=== PATIENT | female | born 1965 | race Caucasian/White ===

== ENCOUNTER 2019-05-01 00:56 | Day surgery (SDC) | payer OTHER, SELFPAY ==
[2019-04-19 16:13] VITALS: BMI 27.2
[2019-05-01] VITALS (7 sets, daily range): BP systolic 94–142; BP diastolic 59–88; PULSE 64–76; RESP 14; TEMP 36.7; O2SAT 99; BMI 27.6
--- NOTE | 2019-05-01 01:23 | PM.IMHP ---
H&P: HPI History of Present Illness Chief complaint: Thickened Endometrium Narrative: La Vaughan is a 53 year old postmenopausal female who presents for a scheduled hysteroscopy and dilation and curettage. The patient was initially seen in the [facility] office as a referral for thickened endometrium noted on pelvic ultrasound. Patient had a pelvic ultrasound performed in January 2019 as part of monitoring for hormone replacement therapy by an outside provider. Patient started bioidentical hormone replacement in January of 2018 and has been doing well with treatment. Ultrasound showed uterus measuring 9.3 x 5.8 x 4.5 cm with endometrial stripe measuring 5 mm. An in-office endometrial biopsy attempt was made by outside provider, however unsuccessful due to cervical stenosis. Patient reports severe discomfort and pain during attempted procedure. Patient is otherwise asymptomatic. She denies any unusual vaginal bleeding or discharge. She is status post endometrial ablation approximately 15 years ago at which time menses ceased and went through menopause at age 50. Last Pap smear in December of 2018 and was normal, per patient. Review of Systems Review of Systems: All systems reviewed & are unremarkable except as noted in HPI and below Constitutional: Constitutional: Reports as per HPI, Reports no additional constitutional complaints, Denies chills, Denies fever(s), Denies headache(s) and Denies night sweats Eyes: Eyes: Reports as per HPI and Reports no additional eye complaints ENT: Reports system reviewed and no additional complaints, except as documented, Reports as per HPI, Reports Normal hearing present and Denies headache(s) Cardiovascular: Cardiovascular: Reports as per HPI, Reports no additional cardiovascular complaints, Denies chest pain and Denies dyspnea Respiratory: Respiratory: Reports as per HPI, Reports no additional respiratory complaints, Denies cough and Denies dyspnea Gastrointestinal: Gastrointestinal: Reports as per HPI, Reports no additional gastrointestinal complaints, Denies abdominal pain, Denies change in bowel habits, Denies change in stool character, Denies nausea and Denies vomiting Genitourinary: Genitourinary: Reports no additional female genitourinary complaints, Reports as per HPI, Denies abnormal vaginal bleeding, Denies genital lesions, Denies hot flashes, Reports dyspareunia (occasional), Denies pelvic pain, Denies sexual dysfunction, Denies urinary incontinence, Denies vaginal discharge, Denies vaginal dryness and Denies vaginal odor Musculoskeletal: Musculoskeletal: Reports no additional musculoskeletal complaints and Reports as per HPI Integumentary/Breasts: Skin/Breast: Reports system reviewed and no additional complaints, except as docu, Reports as per HPI, Denies breast pain and Denies nipple discharge Neurologic: Reports system reviewed and no additional complaints, except as documented, Reports as per HPI, Reports Normal hearing present and Denies headache(s) Psychiatric: Psychiatric: Reports no additional psychiatric complaints, Reports as per HPI, Denies anxiety and Denies depression Endocrine: Endocrine: Reports no additional endocrine complaints and Reports as per HPI Hematologic/Lymphatic: Hematologic/Lymphatic: Reports no additional hematologic/lymphatic complaints and Reports as per HPI Allergic/Immunologic: Allergic/Immunologic: Reports no additional allergic/immunologic complaints and Reports as per HPI PMFSH Past Medical History Medical History (Updated 04/23/19 @ 09:19 by Verona Laguerre MD) Allergies Anxiety Depression Endometrial thickening on ultrasound Hormone replacement therapy (~03/2017) Thyroid disease Surgical History Surgical History Delivery by section History of endometrial ablation History of tubal ligation [place] teeth removed Family History Family History
--- NOTE | 2019-05-01 07:26 | WPDHPUPDATE1 ---
History and Physical Update Update Date/Time: 05/01/19 07:26 History and Physical has been reviewed, including an updated exam of the patient. There are NO changes in the patient's condition. Risks, benefits, and alternatives have been discussed and questions answered. Patient agrees to proceed with procedure.
--- NOTE | 2019-05-01 07:41 | WPDANESEPPF ---
Anes - Initial Pre Proc Eval Procedure: Operation Date: 05/01/19 08:30 Proposed Procedures p Hysteroscopy, Dilation and Curettage, Possible Myosure - Verona Laguerre MD Date/Time: 05/01/19 07:41 Surgeon: Verona Laguerre MD Pre Op Diagnosis: Thickened Endometrium Patient Data Age: 53 Gender: F Height: 5 ft 1 in Weight: 65.32 kg Allergies Allergy/AdvReac Type Severity Reaction Status Date / Time No Known Drug Allergies Allergy Unknown Unknown Verified 05/01/19 07:10 Home Medications Medication Instructions Recorded Confirmed Type multivitamin 1 tablet PO DAILY 02/14/19 04/19/19 History testosterone 1 packet TRANSDERM DAILY #2.5 gm 02/14/19 04/19/19 Rx zolpidem 10 mg tablet 10 mg PO HS PRN 02/14/19 04/19/19 History thyroid (pork) 30 mg tablet 30 mg PO BID #60 tablet 03/29/19 04/19/19 Rx progesterone micronized 100 mg 150 mg PO QAM #90 cap 04/12/19 04/19/19 Rx capsule Estradiol Compound Drops 0.1 ml PO DIRECTED 04/19/19 History misoprostol 200 mcg tablet 200 mcg PO Q12H #2 tablet 04/23/19 04/23/19 Rx Patient hx anesthesia problems: none Family hx anesthesia problems: none PMFSH Past Medical History Medical History Allergies Anxiety Depression Endometrial thickening on ultrasound Hormone replacement therapy (~03/2017) Thyroid disease Surgical History Surgical History Delivery by section History of endometrial ablation History of tubal ligation [place] teeth removed Family History Family History Mother Family history of cardiovascular disease Family history of malignant neoplasm Hypertension Family history of heart disease in male family member before age 55 Sibling Family history of cardiovascular disease Grandparent Hypertension Family history of heart disease in male family member before age 55 Father Family history of chronic obstructive pulmonary disease Family history of emphysema Family history of heart disease in male family member before age 55 Social History Social History Smoking status: Never smoker Second hand tobacco smoke exposure: No Alcohol intake: current Anes - Eval Final PreProcedure Day of Procedure 05/01/19 07:41 Patient weight: overweight Heart: regular rate and rhythm Lungs: clear to auscultation Airway: Mallampati scale class 1 Neurological: alert and oriented Last oral intake: >/= 8 hours ASA classification: II Emergent: no Anesthetic plan: proceed Anesthesia type and monitoring: general GIVS and standard monitoring Informed Consent: The patient's anesthetic plan and its attendant risks and benefits were discussed with the patient/family/POA. Questions were solicited and answers provided to the satisfaction of the patient/family/POA.
[2019-05-01] MEDS: LACTATED RINGERS 1,000 ML 30 ML IV CONT ×2 (07:47→09:18)
[2019-05-01] MEDS: KETOROLAC 30 MG/ML VIAL (*BKC) IV PUSH (08:48)
[2019-05-01] MEDS: ceFAZolin SODIUM 1 GM VIAL 2 GM IV PUSH (09:01)
--- NOTE | 2019-05-01 09:31 | PM.PROC ---
Procedure Note - Detailed Date of procedure: 05/01/19 Pre-op diagnosis: Thickened Endometrium Post-op diagnosis: same Procedure performed: Hysteroscopy Endometrial biopsy Description of procedure: The patient was taken to the operating room where she self transferred to the operating room table. She was placed in dorsal supine position. Anesthesia was administered and found to be adequate. The patient was repositioned in the dorsal lithotomy position with Macho stirrups. She was prepped and draped in the usual sterile fashion. A red rubber catheter was used to drain the bladder of 100 cc of clear urine. A bivalve speculum was inserted into the vagina. The cervix was well visualized. On inspection, the anterior surface of the cervix appeared completely smooth and flat. Absolutely no concavity or central dimpling of the cervical os was visualized as the entire surface appeared to be completely scarred. The anterior lip of the cervix was grasped with a single-tooth tenaculum. 10 cc of 1% lidocaine was administered as a paracervical block with 5 cc on either side. An attempt to locate and enter the endocervical canal was made with several dilators, even the smallest diameter blunt rectal probe available, however, unsuccessful. A second single tooth tenaculum was used to grasp the posterior lip of the cervix to further stabilize the cervix. Subsequent attempts to enter cervical canal bluntly were also futile. A puncture was made with a needle directly in the center the cervix where the suspected cervical os would be. Small lacrimal dilators were used to begin dilation of the cervical canal. The dilators were gradually increased in size and used to dilate the cervix to the level of the internal os. The internal os was difficult to identify via palpation. In an attempt to locate the internal os via hydrodistension, the hysteroscope was gently advanced through the the cervix and the internal os was visualized, however, os was too narrow to advance hysteroscope. Hysteroscope was removed. With continued serial dilation, the endometrial cavity was entered. A 2nd attempt was made to advance the hysteroscope into the endometrial cavity, however, slight resistance was encountered at level of internal os. A brief glance into the endometrial cavity was performed and no gross abnormalities were visualized, although view was limited. While attempting to advance hysteroscope beyond resistance into the endometrial cavity, a suspected uterine perforation occurred and what appeared to be bowel came into view. No significant bleeding was visualized and the hysteroscope was retracted and removed. Ancef 2g was requested to be adminstered by anesthesia. In lieu of a rigid curette, an endometrial pipelle was used to obtain a sampling of the lining of the endometrium. Three passes were made with pipelle. Tissue was prepared to be sent to pathology. The posterior tenaculum was removed. A tiny vessel near one of the puncture sites was bleeding. A figure of eight stitch using 3-0 vicryl was placed and excellent hemostasis was noted. The anterior tenaculum was removed and a minimal amount of oozing was noted from puncture sites. These sites were made hemostatic with silver nitrate. Excellent hemostasis was noted. The vagina was cleansed and dried and the speculum was removed. The remainder of the patient was cleansed and dried. She was taken out of the dorsal lithotomy position and awakened from anesthesia without difficulty. She was transported to the recovery room in stable condition. All instrument counts were correct at the end of the procedure. Anesthesia: MAC Surgeon: Verona Laguerre MD Estimated blood loss (mL): 30 IV fluids (mL): 1,000 Urine output (mL): 100 Drains: No Packing: No Pathology: yes (endometrial biopsy) Complications: Other complications (uterine perforation) Condition: stable Disposition: same day Findings: Hysteroscopic fluid: 550cc in/300cc out Intraoperative findings: ext
--- NOTE | 2019-05-01 10:40 | SUR.PHASEII ---
1030 DR SANTIAGO HERE AND TALKED TO PT AND . DR SANTIAGO REQUESTED PT TO STAY FOR 2 HOURS TO OBSERVE PRIOR TO DISCHARGE.
--- NOTE | 2019-05-01 11:42 | SUR.PHASEII ---
1035 DR SANTIAGO HERE AND TALKED TO PT AND .
== END 2019-05-01 11:55 | disposition home or self-care (01) ==
PROVIDERS: PCP Family Medicine; Visit Provider Student in an Organized Health Care Education/Training Program
PROC: 0U5B8ZZ Destruction of Endometrium, Via Natural or Artificial Opening Endoscopic (ICD-10-PCS; CPT 58563; principal; 2019-05-01 08:30)
DX: R93.89 Abnormal findings on diagnostic imaging of other specified body structures (principal); N99.71 Accidental puncture and laceration of a genitourinary system organ or structure during a genitourinary system procedure; N88.2 Stricture and stenosis of cervix uteri; E07.9 Disorder of thyroid, unspecified; F41.8 Other specified anxiety disorders; Z79.890 Hormone replacement therapy
CPT/HCPCS: 58558; 88305; A9270; J0131; J0690; J1885; J2250; J2405; J2704; J3010; J7030; J7120

== ENCOUNTER 2019-09-10 08:07 | Outpatient (CLI) | payer OTHER, SELFPAY ==
[2019-09-10 08:33] LABS: Add Urine Microscopic? YES; Appearance Urine Clear (Clear); Bacteria Urine Trace /hpf; Bilirubin Urine Negative (Negative); Blood Urine Negative (Negative); Color Urine Yellow (Yellow); Glucose Urine UA Negative (Negative); Ketones Urine Trace mg/dL (Negative); Leukocyte Esterase Ur Negative LEU/UL (Negative); Nitrate Urine Negative (Negative); Protein Urine Negative (Negative); RBC Urine 0-2 /hpf (0-2); Specific Grav Ur 1.016 (1.001-1.035); Squamous Epithelial Cell Urine Occasional /hpf (Few); Urobilinogen Urine Negative mg/dL (<2.0); WBC Urine 0-3 /hpf
[2019-09-10 08:39] LABS: Magnesium 2.1 mg/dL (1.6-2.3)
[2019-09-10 09:11] LABS: Thyroid Stimulating Hormone 0.227 uIU/mL (0.465-4.680)
[2019-09-13 04:56] LABS: Triiodothyronine T3 Free 2.7 pg/mL (2.3-4.2)
[2019-09-13 05:16] LABS: Sex Hormone Binding Globulin 61 nmol/L (17-124); Thyroid Peroxidase Antibodies <1 IU/mL (<9)
[2019-09-14 09:43] LABS: T3 Reverse 12 ng/dL (8-25)
[2019-09-14 14:08] LABS: Testosterone Free 0.8 pg/mL (0.1-6.4); Testosterone Total 11 ng/dL (2-45)
[2019-09-15 09:59] LABS: DHEA-Sulfate 65 mcg/dL (8-188)
[2019-09-15 18:16] LABS: Estradiol, Ultrasensitive 24 pg/mL
[2019-09-16 12:26] LABS: Z Score Female -1.1 SD (-2.0 - +2.0)
== END 2019-09-10 08:08 | disposition home or self-care (01) ==
LOC: ANHLAB 08:09
PROVIDERS: PCP Family Medicine; Visit Provider Family Medicine
DX: E07.9 Disorder of thyroid, unspecified (principal); E28.39 Other primary ovarian failure; N99.89 Other postprocedural complications and disorders of genitourinary system; R53.83 Other fatigue; R63.8 Other symptoms and signs concerning food and fluid intake; R93.89 Abnormal findings on diagnostic imaging of other specified body structures; Z79.890 Hormone replacement therapy; Z82.62 Family history of osteoporosis; Z98.51 Tubal ligation status; Z79.899 Other long term (current) drug therapy; G25.81 Restless legs syndrome
CPT/HCPCS: 36415; 81001; 82627; 82670; 83735; 84270; 84305; 84402; 84403; 84443; 84481; 84482; 86376

== ENCOUNTER 2019-10-02 08:04 | Outpatient (CLI) | payer OTHER, SELFPAY ==
--- NOTE | ~2019-10-02 | MM_ITS ---
EXAMINATION: MM screening wanda BI w sola HISTORY: Screening mammogram TECHNIQUE: Craniocaudal and mediolateral oblique 3-D tomosynthesis images were obtained and synthetic 2-D images were generated. CAD analysis was submitted and interpreted. COMPARISON: Comparison to multiple prior studies sequentially, with oldest reviewed study dated 11/22. BREAST PARENCHYMAL COMPOSITION: The breasts are heterogeneously dense, which may obscure small masses . FINDINGS: Left breast asymmetries are stable. There is no evidence of suspicious mass, calcification, or architectural distortion to suggest malignancy in either breast. There has been no suspicious int erval change. IMPRESSION: 1. No mammographic evidence of malignancy. 2. Recommend routine screening mammography in one year. BI-RADS Category 1: Negative Reviewed, dictated and finalized at location A.
[2019-10-02 08:25] LABS: Basophils Percent Auto 0.5 % (0.2-1.2); Eosinophils Absolute Auto 0.2 K/mm3 (0-0.3); Eosinophils Percent Auto 1.9 % (0-4.4); Hematocrit 40.5 % (37.0-47.0); Hemoglobin 13.5 g/dL (12.0-15.0); Immature Granulocyte Absolute 0.03 K/mm3 (0.00-0.031); Immature Granulocyte Percent A 0.4 % (0-0.5); Lymphocytes Absolute Auto 3.09 K/mm3 (0.9-3.2); Lymphocytes Percent Auto 36.8 % (18.3-44.2); Mean Corpuscular HGB Conc 33.3 g/dl (32-36); Mean Corpuscular Hemoglobin 29.1 pg (26-34); Mean Corpuscular Volume 87.3 fl (80-100); Mean Platelet Volume 9.8 fl (7.4-10.4); Monocytes Absolute Auto 0.8 K/mm3 (0.1-0.6); Neutrophils Absolute Auto 4.3 K/mm3 (1.3-6.7); Neutrophils Percent Auto 51.4 % (45.5-73.1); Platelet Count Result 250 k/mm3 (150-375); Red Blood Count 4.64 M/mm3 (4.2-5.4); White Blood Count 8.4 K/mm3 (4.5-10.0)
[2019-10-02 08:42] LABS: Alanine Aminotransferase 14 U/L (4-35); Albumin Level 4.3 g/dL (3.5-5.1); Alkaline Phosphatase 63 U/L (38-126); Aspartate Amino Transferase 23 U/L (14-36); Bilirubin,Total 0.4 mg/dL (0.2-1.3); Blood Urea Nitrogen 21 mg/dL (7-17); CRP < 0.5 mg/dL (<1.0); Calcium 9.3 mg/dL (8.4-10.2); Carbon Dioxide 29 mmol/L (22-30); Chloride 101 mmol/L (98-107); Cholesterol 278 mg/dL (0-200); Estimated Glomerular Filt Rate > 60; Glucose 86 mg/dL (65-105); HDL Direct 88 mg/dL; Potassium 3.7 mmol/L (3.4-5.0); Sodium 137 mmol/L (137-145); Triglycerides 97 mg/dL (<150)
[2019-10-02 08:50] LABS: LDL Cholesterol Direct 137 mg/dL
[2019-10-02 09:36] LABS: Free T4 Free Thyroxine 1.02 ng/mL (0.78-2.19); Vitamin D 25 Hydroxy 38.2 ng/mL
[2019-10-02 09:45] LABS: Folic Acid 14.1 ng/mL (2.76->20)
[2019-10-06 04:28] LABS: CA-125 7 U/mL (<35); Insulin Level Total 3.2 uIU/mL (<=19.6)
[2019-10-06 07:23] LABS: C-Peptide 0.98 ng/mL (0.80-3.85)
== END 2019-10-02 08:05 | disposition home or self-care (01) ==
LOC: ANHIMG 08:05
PROVIDERS: PCP Family Medicine; Visit Provider Family Medicine
DX: E07.9 Disorder of thyroid, unspecified (principal); E28.39 Other primary ovarian failure; R53.83 Other fatigue; R63.8 Other symptoms and signs concerning food and fluid intake; R93.89 Abnormal findings on diagnostic imaging of other specified body structures; Z79.890 Hormone replacement therapy; Z82.62 Family history of osteoporosis; M81.0 Age-related osteoporosis without current pathological fracture; N99.89 Other postprocedural complications and disorders of genitourinary system; Z98.51 Tubal ligation status; Z12.31 Encounter for screening mammogram for malignant neoplasm of breast
CPT/HCPCS: 36415; 77063; 77067; 80053; 80061; 82306; 82533; 82607; 82746; 83001; 83525; 84144; 84439; 84681; 85025; 86140; 86304

== ENCOUNTER 2019-10-25 09:30 | Outpatient (CLI) | payer OTHER, SELFPAY ==
--- NOTE | ~2019-10-25 | NM_ITS ---
EXAMINATION: NM stress w perf spect multi DATE: 10/25/2019 12:11 INDICATION: Family history of early coronary atherosclerosis. Hypercholesterolemia. TECHNIQUE: Rest images were obtained following intravenous administration of 9 mCi Tc99m tetrofosmin (Myoview). The patient performed an exercise activity. At peak exercise, 27.9 mCi Tc99m tetrofosmin ( Myoview) was administered intravenously, and stress images were obtained. Data was reconstructed into short axis and horizontal and vertical long axis SPECT images. Gated SPECT images were also obtained . COMPARISON: None. FINDINGS: There is no definite reversible or fixed perfusion abnormality to suggest ischemia or infar ction. There is no segmental wall motion abnormality. Left ventricular ejection fraction measures > 70%. IMPRESSION: 1. No definite ischemia or infarct. 2. Normal left ventricular ejection fraction measuring >70 %. Reviewed, dictated and finalized at location B.
--- NOTE | 2019-10-25 10:30 | EST_ITS ---
Patient Info Name: La Vaughan Age: 53 years : 1965 Gender: Female Ht: 61 in Wt: 144 lbs BSA: 1.70 m2 Exam Date: 10/25/2019 10:45 AM Exam Location: [facility] Stress Patient Status: Outpatient Admit Date: 10/25/2019 Staff Ordering Physician: Louie Gomez DO Attending Provider: Louie Gomez DO Exercise Technologist: Carlota Collins RDCS Exercise Physician: Corey Brown DO Exam Type: CA stress test treadmill w NM Study Info Indications z82.41 - family history of sudden cardiac E78.0 - Pure hypercholesterolemia Z82.49 - Family history of ischemic heart disease and other diseases of the circulatory system A pharmacological stress test was performed. Summary 1. 1. Negative Nathan exercise stress test for ischemic ST changes by ECG criteria. 2. 2. Good functional capacity, achieving 11 METs of workload. 3. 3. Appropriate HR response to exercise. 4. 4. Appropriate HR recovery at 1 minute post exercise. 5. 5. Nuclear scan to follow and will be reported separately. Please correlate with it. 6. 6. Patient informed of the above results. Protocol: Nathan Stress ECG Details Stage: REST Duration (min): 6 min : 55 sec Speed (mph): 0.0 Grade (%): 0 HR (bpm): 66 SBP (mmHg): 116 DBP (mmHg): 78 METS: --- Stage: REST Duration (min): 11 min : 25 sec Speed (mph): 0.0 Grade (%): 0 HR (bpm): 72 SBP (mmHg): 116 DBP (mmHg): 78 METS: --- Stage: STAGE 1 Duration (min): 1 min : 0 sec Speed (mph): 1.7 Grade (%): 10 HR (bpm): 108 SBP (mmHg): 116 DBP (mmHg): 78 METS: --- Stage: STAGE 1 Duration (min): 2 min : 0 sec Speed (mph): 1.7 Grade (%): 10 HR (bpm): 114 SBP (mmHg): 116 DBP (mmHg): 78 METS: --- Stage: STAGE 1 Duration (min): 3 min : 0 sec Speed (mph): 1.7 Grade (%): 10 HR (bpm): 111 SBP (mmHg): 128 DBP (mmHg): 77 METS: --- Stage: STAGE 2 Duration (min): 1 min : 0 sec Speed (mph): 2.5 Grade (%): 12 HR (bpm): 123 SBP (mmHg): 128 DBP (mmHg): 77 METS: --- Stage: STAGE 2 Duration (min): 2 min : 0 sec Speed (mph): 2.5 Grade (%): 12 HR (bpm): 131 SBP (mmHg): 133 DBP (mmHg): 75 METS: --- Stage: STAGE 2 Duration (min): 3 min : 0 sec Speed (mph): 2.5 Grade (%): 12 HR (bpm): 138 SBP (mmHg): 133 DBP (mmHg): 75 METS: --- Stage: STAGE 3 Duration (min): 1 min : 0 sec Speed (mph): 3.4 Grade (%): 14 HR (bpm): 141 SBP (mmHg): 133 DBP (mmHg): 75 METS: --- Stage: STAGE 3 Duration (min): 2 min : 0 sec Speed (mph): 3.4 Grade (%): 14 HR (bpm): 145 SBP (mmHg): 133 DBP (mmHg): 75 METS: --- Stage: STAGE 3 Duration (min): 3 min : 0 sec Speed (mph): 3.4 Grade (%): 14 HR (bpm): 147 SBP (mmHg): 145 DBP (mmHg): 79 METS: --- Stage: STAGE 4 Duration (min): 0 min : 30 sec Speed (m
== END 2019-10-25 09:31 | disposition home or self-care (01) ==
LOC: ANHCARD 09:32
PROVIDERS: PCP Family Medicine; Visit Provider Family Medicine
DX: E78.00 Pure hypercholesterolemia, unspecified (principal); Z82.41 Family history of sudden cardiac death; Z82.49 Family history of ischemic heart disease and other diseases of the circulatory system
CPT/HCPCS: 78452; 93017; A9502

== ENCOUNTER 2020-07-06 15:35 | Outpatient (CLI) | payer OTHER, SELFPAY ==
--- NOTE | ~2020-07-06 | US_ITS ---
EXAMINATION: US pelvic complete w TV DATE: 07/06/2020 16:31 INDICATION: Follow-up endometrial thickening Comparison:02/01/2019 TECHNIQUE: Multiple transabdominal and endovaginal sonographic images of the pelvis performed. FINDINGS: The uterus measures 6.4 x 3.2 x 4 cm. The endometrial complex measures 4 mm. The right ovary measures 1.4 x 1.1 x 1 cm and the left ovary measures 1.5 x 0.9 x 1.2 cm. There are small follicles in each ovary. Normal doppler signal in both ovaries. There is no free fluid in the pelvis. There are no abnormal masses seen on either side. IMPRESSION: 1. Borderline sized endometrium measures 4 mm. Reviewed, dictated and finalized at location B.
== END 2020-07-06 15:36 | disposition home or self-care (01) ==
PROVIDERS: PCP Family Medicine; Visit Provider Family Medicine
DX: R93.89 Abnormal findings on diagnostic imaging of other specified body structures (principal)
CPT/HCPCS: 76830; 76856

== ENCOUNTER 2020-08-03 13:46 | Outpatient (CLI) | payer OTHER, SELFPAY ==
--- NOTE | ~2020-08-03 | DEXA_ITS ---
Bone Density Report Name: La Vaughan Age: 54 Sex: Female Ethnicity: White Date of : 1965 Indication: postmenopausal; Referring Provider: Louie Gomez Study: Bone densitometry was performed. Exam Date: August 03, 2020 Accession number: [id number] Bone Density: Region BMD T-score Z-score Classification AP Spine (L1-L4) 1.086 0.4 1.5 Normal Femoral Neck (Left) 0.720 -1.2 -0.1 Osteopenia Total Hip (Left) 0.840 -0.8 -0.1 Normal Total Hip Bilateral Avg 0.864 -0.6 0.1 Normal Femoral Neck (Right) 0.742 -1.0 0.1 Normal Total Hip (Right) 0.887 -0.4 0.3 Normal World Health Organization criteria for BMD impression classify patients as: Normal (T-score at or above -1.0), Osteopenia (T-score between -1.0 and -2.5), or Osteoporosis (T-score at or below -2.5). 10-year Fracture Risk(1): Major Osteoporotic Fracture 6.2% Hip Fracture 0.4% Reported Risk Factors: [place] (), Neck BMD=0.720, BMI=27.8 (1) FRAX(R) Version 3.08. Fracture probability calculated for an untreated patient. Fracture probability may be lower if the patient has received treatment. Clinical Information Provided by Patient: Patient maximum height was 61.5 Menopause Age: 50 Drinks caffeinated beverages Onset of menses at age 13 Number of children 2 Impression: The patient has low bone mass, based on the Left Femoral Neck T-score. The patient has an estimated ten-year risk of hip fracture of 0.4% and an estimated ten-year risk of major fracture of 6.2%, based on the WHO FRAX algorithm. Discussion: BONE DENSITY IS LOW AT ONE OR MORE SKELETAL SITES. This patient's lowest T-score is low at one or more skeletal sites. It meets the World Health Organization's (WHO) criteria for ?low bone mass? (T-score between -1.0 and -2.5). The patient's 10-year risk of fracture as calculated by FRAX is less than the threshold where pharmacological therapy is recommended by the National Osteoporosis Foundation (NOF). However, all treatment decisions require clinical judgment and consideration of individual patient factors, including patient preferences, comorbidities, previous drug use, risk factors not captured in the FRAX model (e.g., frailty, falls, vitamin D deficiency, increased bone turnover, interval significant decline in bone density) and possible under or overestimation of fracture risk by FRAX. The patient should follow a healthful lifestyle (good nutrition with adequate calcium and vitamin D, and appropriate weight-bearing exercise). Follow-Up: Consider repeating this study in 2 to 3 years to reassess this patient's status, or sooner if there is some new clinical indication. Reported by: REUBEN on 08/03/2020 2:00:00 PM. Reviewed, dictated and finalized at location A. [facility]PITALRandall
== END 2020-08-03 13:47 | disposition home or self-care (01) ==
LOC: ANHIMG 13:47
PROVIDERS: PCP Family Medicine; Visit Provider Family Medicine
DX: Z13.820 Encounter for screening for osteoporosis (principal); M85.852 Other specified disorders of bone density and structure, left thigh
CPT/HCPCS: 77080

== ENCOUNTER 2021-07-28 14:58 | Outpatient (CLI) | payer OTHER, SELFPAY ==
--- NOTE | ~2021-07-28 | US_ITS ---
EXAMINATION: US pelvic complete w TV DATE: 07/28/2021 15:58 INDICATION: Previous endometrial ablation. Borderline endometrium. Comparison:Ultrasound dated 07/06/2020 TECHNIQUE: Multiple transabdominal and endovaginal sonographic images of the pelvis performed. FINDINGS: The uterus measures 6.8 x 3.6 x 2.6 cm. The endometrial complex measures 3 mm. The right ovary measures 1.3 x 1.2 x 0.7 cm and the left ovary measures 1.2 x .8 x 1.2 cm. There are small follicles in each ovary. Normal doppler signal in both ovaries. There is no free fluid in the pelvis. There are no abnormal masses seen on either side. IMPRESSION: 1. Unremarkable pelvic ultrasound. Reviewed, dictated and finalized at location A.
== END 2021-07-28 14:59 | disposition home or self-care (01) ==
LOC: ANHIMG 15:05
PROVIDERS: PCP Family Medicine; Visit Provider Family Medicine
DX: R93.89 Abnormal findings on diagnostic imaging of other specified body structures (principal)
CPT/HCPCS: 76830; 76856

== ENCOUNTER 2021-09-08 08:05 | Outpatient (NON) | payer OTHER, SELFPAY | END 2021-09-08 08:06 | disposition home or self-care (01) | LOC: ANHLAB 09-09 10:00 | PROVIDERS: PCP Family Medicine; Visit Provider Student in an Organized Health Care Education/Training Program | DX: D31.00 Benign neoplasm of unspecified conjunctiva (principal) | CPT/HCPCS: 88305 ==

== ENCOUNTER 2021-09-08 11:11 | Day surgery (SDC) | payer OTHER, SELFPAY ==
[2021-08-26 11:47] VITALS: BMI 26.2
--- NOTE | 2021-09-08 09:00 | WPDHPUPDATE1 ---
History and Physical Update Update Date/Time: 09/08/21 09:00 History and Physical has been reviewed, including an updated exam of the patient. There are NO changes in the patient's condition. Risks, benefits, and alternatives have been discussed and questions answered. Patient agrees to proceed with procedure.
[2021-09-08 11:25] VITALS: BP 109/71; PULSE 73; RESP 20; TEMP 36.8; O2SAT 100
--- NOTE | 2021-09-08 11:48 | WPDANESEPPF ---
Anes - Initial Pre Proc Eval Procedure: Operation Date: 09/08/21 12:15 Proposed Procedures p Conjunctival Nevus Excision-Left Eye - Thai Miller MD Date/Time: 09/08/21 11:48 Surgeon: Thai Miller MD Pre Op Diagnosis: Conjunctival Nevus Left Eye Patient Data Age: 55 Gender: F Height: 1.55 m Weight: 62 kg Last Vital Signs Temp 36.8 C 09/08/21 11:25 Pulse 73 09/08/21 11:25 Resp 20 09/08/21 11:25 BP 109/71 09/08/21 11:25 Pulse Ox 100 09/08/21 11:25 O2 Del Method Room Air 09/08/21 11:25 Allergies Allergy/AdvReac Type Severity Reaction Status Date / Time No Known Drug Allergies Allergy Unknown Unknown Verified 09/08/21 11:29 Home Medications Medication Instructions Recorded Confirmed Type multivitamin 1 tablet PO DAILY 02/14/19 09/08/21 History fluticasone propionate 115 2 puff inhalation BID #12 grams 02/11/21 09/08/21 Rx mcg-salmeterol 21 mcg/actuation HFA inhaler prednisone 20 mg tablet 40 mg PO DAILY #10 tabs 06/07/21 09/08/21 Rx alprazolam 0.5 mg tablet (Xanax) 0.5 mg PO BID PRN anxiety #60 tabs 08/18/21 09/08/21 Rx eszopiclone 1 mg tablet (Lunesta) 1 mg PO QHS #30 tabs 08/18/21 09/08/21 Rx Patient hx anesthesia problems: none Family hx anesthesia problems: none Results Review: All pre-operative results and documents have been reviewed as part of the pre-operative evaluation. [facility] Past Medical History Medical History Allergies Anxiety Depression Endometrial thickening on ultrasound Hormone replacement therapy (~03/2017) Osteopenia 08/07/2020 localized to 1 area see bone density most recent patient will start taking vitamin-D and calcium and exercising Thyroid disease Surgical History Surgical History Delivery by section History of dilation and curettage History of endometrial ablation History of tubal ligation [place] teeth removed Family History Family History Mother Family history of cardiovascular disease Family history of malignant neoplasm Hypertension Family history of heart disease in male family member before age 55 Sibling Family history of cardiovascular disease Grandparent Hypertension Family history of heart disease in male family member before age 55 Father Family history of chronic obstructive pulmonary disease Family history of emphysema Family history of heart disease in male family member before age 55 Social History Social History Smoking status: Never smoker Second hand tobacco smoke exposure: No Alcohol intake: current Alcohol use details: SOCIALLY Substance use: never Substance use type: does not use Living arrangements: with family Spiritual care concerns: No Anes - Eval Final PreProcedure Day of Procedure 09/08/21 11:48 Patient weight: normal Heart: regular rate and rhythm Lungs: clear to auscultation Airway: Mallampati scale class II Neurological: alert and oriented Last oral intake: >/= 8 hours ASA classification: II Emergent: no Anesthetic plan: proceed Anesthesia type and monitoring: monitored anesthesia care Results Review: All pre-operative results and documents have been reviewed as part of the pre-operative evaluation. Informed Consent: The patient's anesthetic plan and its attendant risks and benefits were discussed with the patient/family/POA. Questions were solicited and answers provided to the satisfaction of the patient/family/POA.
[2021-09-08] MEDS: TETRACAINE HCL 0.5% OPHTH SOLN 4 ML BTL 1 DROP AFFCTD EYE ×3 (11:56→12:07)
[2021-09-08] MEDS: OFLOXACIN 0.3% OPHTH SOLN 5 ML BTL 1 DROP AFFCTD EYE (11:56)
[2021-09-08] MEDS: LIDOCAINE HCL 2% JELLY 5 ML TUBE 1 APPLIC AFFCTD EYE (12:18)
--- NOTE | 2021-09-08 12:20 | W.PM.PROC2 ---
Procedure Note - Detailed Date of Procedure 09/08/21 Pre-op Diagnosis Conjunctival Nevus Left Eye Post-op Diagnosis Same Procedure Performed Excisional biopsy LEFT eye Surgeon Thai Miller MD Description of Procedure After a detailed discussion of the risks, benefits, and alternatives, the patient decided to proceed with excision. Informed consent was given. The field was then prepped and draped in the sterile fashion. The patient was given topical Tetracaine drops. 0.5 mL of 1% lidocaine with epinephrine was used to anesthetize the lesion. The lesion was excised using Zara scissors. It was then sent in formalin to pathology. No suture was needed When adequate hemostasis had been achieved, topical polymyxin/dexamethasone ointment was placed on the surgical site. The patient tolerated the procedure well, and there were no complications. Pathology Yes Complications None Condition Stable Disposition Same day
[2021-09-08] MEDS: LIDO 1%/EPINEPHRINE/PF 1:200,000 30 ML VIAL INTRAOCULA (12:30)
[2021-09-08 12:38] VITALS: BP 110/80; PULSE 66; RESP 16; O2SAT 98
--- NOTE | 2021-09-08 12:44 | WPDANESPN ---
Anes - Prog Note Post-Op Date/Time: 09/08/21 12:44 Cardiovascular status: normal Respiratory status: normal Airway patency: baseline Mental status: baseline Post-Op hydration status: normal Vital Signs: Last Vital Signs Temp 36.8 C 09/08/21 11:25 Pulse 73 09/08/21 11:25 Resp 20 09/08/21 11:25 BP 109/71 09/08/21 11:25 Pulse Ox 100 09/08/21 11:25 O2 Del Method Room Air 09/08/21 11:25 Pain Score (VAS): 0 Patient Feedback: Patient satisfied with anesthetic care.
== END 2021-09-08 13:06 | disposition home or self-care (01) ==
PROVIDERS: PCP Family Medicine
PROC: (CPT 66983; principal; 2021-09-08 12:15)
DX: D31.02 Benign neoplasm of left conjunctiva (principal)
CPT/HCPCS: 67840

== ENCOUNTER 2021-09-27 09:29 | Outpatient (CLI) | payer OTHER, SELFPAY ==
[2021-09-27 19:04] LABS: Hematocrit 41.4 % (37.0-47.0); Hemoglobin 13.7 g/dL (12.0-15.0); Mean Corpuscular HGB Conc 33.1 g/dl (32-36); Mean Corpuscular Hemoglobin 29.6 pg (26-34); Mean Corpuscular Volume 89.4 fl (80-100); Mean Platelet Volume 10.4 fl (7.4-10.4); Platelet Count Result 286 k/mm3 (150-375); Red Blood Count 4.63 M/mm3 (4.2-5.4); Red Cell Distribution Width 12.3 % (11.5-14.5); White Blood Count 8.1 K/mm3 (4.5-10.0)
[2021-09-27 19:13] LABS: Alanine Aminotransferase 17 U/L (6-35); Albumin Level 4.7 g/dL (3.5-5.1); Alkaline Phosphatase 77 U/L (38-126); Anion Gap 5 mmol/L (8-16); Aspartate Amino Transferase 45 U/L (14-36); Bilirubin,Total 0.5 mg/dL (0.2-1.3); Blood Urea Nitrogen 24 mg/dL (7-17); Calcium 9.6 mg/dL (8.4-10.2); Carbon Dioxide 28 mmol/L (22-30); Chloride 103 mmol/L (98-107); Cholesterol 301 mg/dL (0-200); Estimated Glomerular Filt Rate > 60; Glucose 90 mg/dL (65-110); HDL Direct 81 mg/dL; Potassium 4.2 mmol/L (3.4-5.0); Sodium 136 mmol/L (137-145); Triglycerides 168 mg/dL (<150)
[2021-09-27 19:25] LABS: LDL Cholesterol Direct 132 mg/dL
[2021-09-27 20:58] LABS: Hemoglobin A1C 5.1 % (<5.7)
== END 2021-09-27 09:30 | disposition home or self-care (01) ==
PROVIDERS: PCP Family Medicine; Visit Provider Family Medicine
DX: Z00.00 Encounter for general adult medical examination without abnormal findings (principal); E78.49 Other hyperlipidemia
CPT/HCPCS: 36415; 80053; 80061; 83036; 85027

== ENCOUNTER 2021-10-01 08:24 | Outpatient (CLI) | payer OTHER, SELFPAY ==
--- NOTE | ~2021-10-01 | MM_ITS ---
EXAMINATION: MM screening wanda BI w sola HISTORY: Screening TECHNIQUE: Craniocaudal and mediolateral oblique 3-D tomosynthesis images were obtained and synthetic 2-D images were generated. CAD analysis was submitted and interpreted. COMPARISON: Comparison to multiple prior studies sequentially, with oldest reviewed study dated 06/09. BREAST PARENCHYMAL COMPOSITION: The breasts are heterogenously dense, which may obscure small masses FINDINGS: There are developing asymmetries in the upper outer quadrant of the right breast posteriorl y. The left breast is stable without evidence for malignancy. IMPRESSION: 1. Developing right breast asymmetries, upper outer quadrant. 2. Additional mammographic views and possible breast ultrasound are recommended. BI-RADS Category 0: Incomplete: Needs additional imaging evaluation. Reviewed, dictated and finalized at location A. IMPRESSION: 1. Developing right breast asymmetries, upper outer quadrant. 2. Additional mammographic views and possible breast ultrasound are recommended . BI-RADS Category 0: Incomplete: Needs additional imaging evaluation.
== END 2021-10-01 08:25 | disposition home or self-care (01) ==
LOC: ANHIMG 08:26
PROVIDERS: PCP Family Medicine; Visit Provider Family Medicine
DX: Z12.31 Encounter for screening mammogram for malignant neoplasm of breast (principal); R92.8 Other abnormal and inconclusive findings on diagnostic imaging of breast
CPT/HCPCS: 77063; 77067

== ENCOUNTER 2021-10-06 10:09 | Outpatient (CLI) | payer OTHER, SELFPAY | END 2021-10-06 10:10 | disposition home or self-care (01) | PROVIDERS: PCP Family Medicine; Visit Provider Family Medicine | DX: R79.89 Other specified abnormal findings of blood chemistry (principal); Z79.890 Hormone replacement therapy | CPT/HCPCS: 36415; 82306; 84443 ==

== ENCOUNTER 2021-10-14 14:00 | Outpatient (CLI) | payer OTHER, SELFPAY ==
--- NOTE | ~2021-10-14 | MMUS_ITS ---
EXAMINATION: MM diagnostic wanda RT w sola, US breast RT limited HISTORY: Follow-up right breast asymmetry TECHNIQUE: Additional 3-D tomosynthesis images of the right breast were performed and synthetic 2-D i mages were generated. CAD analysis was submitted and interpreted. High resolution Limited right breas t ultrasound was performed. COMPARISON: Comparison to multiple prior studies sequentially, with oldest reviewed study dated 08/20. BREAST PARENCHYMAL COMPOSITION: The breasts are heterogenously dense, which may obscure small masses FINDINGS: MAMMOGRAPHIC FINDINGS: There are no suspicious masses, calcifications or architectural distortion in the right breast with s pot compression or mediolateral views. ULTRASOUND: Limited right breast ultrasound: Normal heterogeneous echotexture without focal solid or cystic mass. IMPRESSION: 1. No mammographic or sonographic evidence for malignancy in the right breast. 2. Routine yearly screening mammogram and regular clinical breast examination are recommended. BI-RADS CATEGORY 1 - NEGATIVE Reviewed, dictated and finalized at location A. IMPRESSION: 1. No mammographic or sonographic evidence for malignancy in the right breast. 2. Routine yearly screening mammogram and regular clinical breast examination a re recommended. BI-RADS CATEGORY 1 - NEGATIVE
== END 2021-10-14 14:01 | disposition home or self-care (01) ==
LOC: ANHIMG 14:02
PROVIDERS: PCP Family Medicine; Visit Provider Family Medicine
DX: R92.8 Other abnormal and inconclusive findings on diagnostic imaging of breast (principal); N64.89 Other specified disorders of breast
CPT/HCPCS: 76642; 77061; 77065; G0279

== ENCOUNTER 2022-01-27 09:20 | Outpatient (CLI) | payer OTHER, SELFPAY ==
[2022-01-27 19:11] LABS: Hemoglobin 13.4 g/dL (12.0-15.0); Mean Corpuscular HGB Conc 32.7 g/dl (32-36); Mean Corpuscular Hemoglobin 29.3 pg (26-34); Mean Corpuscular Volume 89.7 fl (80-100); Mean Platelet Volume 10.1 fl (7.4-10.4); Platelet Count Result 278 k/mm3 (150-375); Red Blood Count 4.57 M/mm3 (4.2-5.4); Red Cell Distribution Width 12.3 % (11.5-14.5); White Blood Count 9.1 K/mm3 (4.5-10.0)
[2022-01-27 19:19] LABS: Alanine Aminotransferase 20 U/L (6-35); Albumin Level 4.6 g/dL (3.5-5.1); Alkaline Phosphatase 78 U/L (38-126); Anion Gap 11 mmol/L (8-16); Aspartate Amino Transferase 48 U/L (14-36); Bilirubin,Total 0.6 mg/dL (0.2-1.3); Blood Urea Nitrogen 30 mg/dL (7-17); Calcium 9.7 mg/dL (8.4-10.2); Carbon Dioxide 27 mmol/L (22-30); Chloride 100 mmol/L (98-107); Cholesterol 310 mg/dL (0-200); Estimated Glomerular Filt Rate > 60; Glucose 94 mg/dL (65-110); HDL Direct 88 mg/dL; Potassium 4.3 mmol/L (3.4-5.0); Sodium 138 mmol/L (137-145); Triglycerides 140 mg/dL (<150)
[2022-01-27 19:24] LABS: Iron 103 ug/dL (37-170)
[2022-01-27 19:30] LABS: LDL Cholesterol Direct 141 mg/dL
[2022-01-27 19:38] LABS: Percent Iron Saturation 30 % (20-50)
[2022-01-27 19:55] LABS: Hepatitis B Surface Antigen Negative (Negative)
[2022-01-27 20:01] LABS: HAV RESULT Negative (Negative); Hepatitis B Core IgM Result Negative (Negative)
[2022-01-27 20:03] LABS: Vitamin D 25 Hydroxy 62.6 ng/mL
[2022-01-27 20:12] LABS: Hepatitis C Virus Antibody Negative (Negative)
== END 2022-01-27 09:21 | disposition home or self-care (01) ==
LOC: ANHBWCLAB 09:21
PROVIDERS: PCP Family Medicine; Visit Provider Family Medicine
DX: R25.2 Cramp and spasm (principal); E78.5 Hyperlipidemia, unspecified; R74.01 Elevation of levels of liver transaminase levels; R79.89 Other specified abnormal findings of blood chemistry
CPT/HCPCS: 36415; 80048; 80061; 80074; 80076; 82306; 82728; 83540; 83550; 85027

== ENCOUNTER 2022-02-07 07:44 | Outpatient (CLI) | payer OTHER, SELFPAY ==
--- NOTE | ~2022-02-07 | US_ITS ---
US abdomen limited INDICATION: Elevated liver function tests PROCEDURE: Realtime right upper abdominal ultrasound. COMPARISON: No prior studies for comparison. FINDINGS: The pancreas is normal without focal mass or pancreatic ductal dilation. Liver echotexture is normal without focal mass or intrahepatic biliary dilatation. There is normal directional flow i n the portal vein. The gallbladder is normal without stones, gallbladder wall thickening or pericholecystic fluid. Comm on bile duct measures 4 mm. No sonographic Esquivel's sign. IMPRESSION: 1: Normal limited abdominal ultrasound. Reviewed, dictated and finalized at location A. EHOLD PERSONAL ASSISTANT
== END 2022-02-07 07:45 | disposition home or self-care (01) ==
PROVIDERS: PCP Family Medicine; Visit Provider Family Medicine
DX: R74.01 Elevation of levels of liver transaminase levels (principal)
CPT/HCPCS: 76705

== ENCOUNTER 2022-11-07 13:41 | Outpatient (NON) | payer OTHER, SELFPAY | END 2022-11-07 13:42 | disposition home or self-care (01) | LOC: ANHLAB 11-09 13:44 | PROVIDERS: PCP Family Medicine; Visit Provider Nurse Practitioner | DX: D22.5 Melanocytic nevi of trunk (principal) | CPT/HCPCS: 88305 ==

== ENCOUNTER 2022-11-17 09:26 | Outpatient (CLI) | payer OTHER, SELFPAY ==
[2022-11-17 19:15] LABS: Alanine Aminotransferase 20 U/L (6-35); Albumin Level 4.5 g/dL (3.5-5.1); Alkaline Phosphatase 71 U/L (38-126); Anion Gap 6 mmol/L (8-16); Aspartate Amino Transferase 55 U/L (14-36); Bilirubin,Total 0.6 mg/dL (0.2-1.3); Blood Urea Nitrogen 11 mg/dL (7-17); Calcium 9.5 mg/dL (8.4-10.2); Carbon Dioxide 29 mmol/L (22-30); Chloride 101 mmol/L (98-107); Cholesterol 303 mg/dL (0-200); Estimated Glomerular Filt Rate > 60; Glucose 81 mg/dL (65-110); HDL Direct 83 mg/dL; Potassium 4.3 mmol/L (3.4-5.0); Sodium 136 mmol/L (137-145); Triglycerides 162 mg/dL (<150)
[2022-11-17 19:26] LABS: LDL Cholesterol Direct 147 mg/dL
[2022-11-17 19:53] LABS: Vitamin D 25 Hydroxy 69.9 ng/mL
== END 2022-11-17 09:27 | disposition home or self-care (01) ==
LOC: ANHBWCLAB 09:28
PROVIDERS: PCP Family Medicine; Visit Provider Nurse Practitioner Adult Health
DX: E78.5 Hyperlipidemia, unspecified (principal); E07.9 Disorder of thyroid, unspecified; R79.89 Other specified abnormal findings of blood chemistry
CPT/HCPCS: 36415; 80053; 80061; 82306; 84443

== ENCOUNTER 2022-12-29 09:45 | Outpatient (CLI) | payer OTHER, SELFPAY ==
--- NOTE | ~2022-12-29 | MM_ITS ---
EXAMINATION: MM screening wanda BI w sola HISTORY: Screening TECHNIQUE: Craniocaudal and mediolateral oblique 3-D tomosynthesis images were obtained and synthetic 2-D images were generated. CAD analysis was submitted and interpreted. COMPARISON: Comparison to multiple prior studies sequentially, with oldest reviewed study dated 09/2016. BREAST PARENCHYMAL COMPOSITION: Breast composed of scattered areas of fibroglandular density FINDINGS: There is no evidence of suspicious mass, calcification, or architectural distortion to sugg est malignancy in either breast. There has been no suspicious interval change. IMPRESSION: 1. No mammographic evidence of malignancy. 2. Recommend routine screening mammography in one year. BI-RADS Category 1: Negative Reviewed, dictated and finalized at location A.
== END 2022-12-29 09:46 | disposition home or self-care (01) ==
PROVIDERS: PCP Family Medicine; Visit Provider Nurse Practitioner Adult Health
DX: Z12.31 Encounter for screening mammogram for malignant neoplasm of breast (principal)
CPT/HCPCS: 77063; 77067

== ENCOUNTER 2023-01-26 11:16 | Outpatient (CLI) | payer OTHER, SELFPAY ==
[2023-01-26 19:22] LABS: Alanine Aminotransferase 22 U/L (6-35); Albumin Level 4.9 g/dL (3.5-5.1); Alkaline Phosphatase 78 U/L (38-126); Anion Gap 13 mmol/L (8-16); Aspartate Amino Transferase 47 U/L (14-36); Bilirubin,Total 0.8 mg/dL (0.2-1.3); Blood Urea Nitrogen 15 mg/dL (7-17); Calcium 9.8 mg/dL (8.4-10.2); Carbon Dioxide 25 mmol/L (22-30); Chloride 100 mmol/L (98-107); Estimated Glomerular Filt Rate > 60; Glucose 90 mg/dL (65-110); Potassium 3.9 mmol/L (3.4-5.0); Sodium 138 mmol/L (137-145)
[2023-01-26 19:31] LABS: Vitamin D 25 Hydroxy 46.8 ng/mL
[2023-01-26 19:45] LABS: Cortisol Random 4.66 ug/dL
[2023-01-26 19:49] LABS: Hematocrit 43.9 % (37.0-47.0); Hemoglobin 13.7 g/dL (12.0-15.0); Mean Corpuscular HGB Conc 31.2 g/dl (32-36); Mean Corpuscular Hemoglobin 29.4 pg (26-34); Mean Corpuscular Volume 94.2 fl (80-100); Mean Platelet Volume 10.1 fl (7.4-10.4); Platelet Count Result 305 k/mm3 (150-375); Red Blood Count 4.66 M/mm3 (4.2-5.4); White Blood Count 7.6 K/mm3 (4.5-10.0)
[2023-02-01 07:03] LABS: FSH 117.7 mIU/mL (***); LH 33.6 mIU/mL (***); Progesterone <0.2 ng/mL (***)
[2023-02-02 21:01] LABS: Estradiol, Ultrasensitive <2 pg/mL
== END 2023-01-26 11:17 | disposition home or self-care (01) ==
PROVIDERS: PCP Family Medicine; Visit Provider Family Medicine
DX: E07.9 Disorder of thyroid, unspecified (principal); F41.9 Anxiety disorder, unspecified; R00.0 Tachycardia, unspecified; Z82.49 Family history of ischemic heart disease and other diseases of the circulatory system; R74.01 Elevation of levels of liver transaminase levels; Z00.00 Encounter for general adult medical examination without abnormal findings; Z79.890 Hormone replacement therapy
CPT/HCPCS: 36415; 80053; 82306; 82533; 82607; 82670; 83001; 83002; 84144; 84443; 85027

== ENCOUNTER 2023-02-01 12:53 | Outpatient (RCR) | payer OTHER, SELFPAY ==
[2023-02-01 12:58] VITALS: BMI 25.4
== END 2023-04-17 08:59 | disposition home or self-care (01) ==
LOC: ANHDMC 12:53
PROVIDERS: PCP Family Medicine; Visit Provider Family Medicine
DX: E07.9 Disorder of thyroid, unspecified (principal); Z71.3 Dietary counseling and surveillance
CPT/HCPCS: 97802

== ENCOUNTER 2023-02-27 07:27 | Outpatient (CLI) | payer OTHER, SELFPAY ==
[2023-02-27 20:49] LABS: Alanine Aminotransferase 37 U/L (6-35); Albumin Level 4.4 g/dL (3.5-5.1); Alkaline Phosphatase 88 U/L (38-126); Anion Gap 9 mmol/L (8-16); Aspartate Amino Transferase 45 U/L (14-36); Bilirubin,Total 0.4 mg/dL (0.2-1.3); Blood Urea Nitrogen 20 mg/dL (7-17); Calcium 9.7 mg/dL (8.4-10.2); Carbon Dioxide 22 mmol/L (22-30); Chloride 107 mmol/L (98-107); Cholesterol 273 mg/dL (0-200); Estimated Glomerular Filt Rate > 60; Glucose 91 mg/dL (65-110); HDL Direct 105 mg/dL; Potassium 4.1 mmol/L (3.4-5.0); Sodium 138 mmol/L (137-145); Triglycerides 117 mg/dL (<150)
[2023-02-27 20:59] LABS: LDL Cholesterol Direct 124 mg/dL
== END 2023-02-27 07:28 | disposition home or self-care (01) ==
LOC: ANHBWCLAB 07:29
PROVIDERS: PCP Family Medicine; Visit Provider Internal Medicine Cardiovascular Disease
DX: E78.5 Hyperlipidemia, unspecified (principal)
CPT/HCPCS: 36415; 80053; 80061

== ENCOUNTER 2023-02-27 13:22 | Outpatient (CLI) | payer OTHER, SELFPAY ==
--- NOTE | ~2023-02-27 | US_ITS ---
US thyroid INDICATION: Nontoxic goiter TECHNIQUE: Real-time sonographic images of the thyroid gland were obtained. COMPARISON: No prior studies for comparison. FINDINGS: The right thyroid lobe measures 3.8 x 1.5 x 1.2 cm. The left thyroid lobe measures 3.7 x 1 .1 x 1.2 cm. There is normal echotexture and echogenicity throughout the thyroid gland. No discrete n odules identified. Normal vascular flow is present. IMPRESSION: 1. Normal thyroid without discrete nodule or abnormal vascularity. Reviewed, dictated and finalized at location A. GN CHECKER
== END 2023-02-27 13:23 | disposition home or self-care (01) ==
PROVIDERS: PCP Family Medicine; Visit Provider Registered Nurse
DX: E04.9 Nontoxic goiter, unspecified (principal)
CPT/HCPCS: 36415; 76536; 80053; 80061

== ENCOUNTER 2023-05-11 07:05 | Outpatient (CLI) | payer OTHER, SELFPAY ==
[2023-05-11 18:43] LABS: Alanine Aminotransferase 22 U/L (6-35); Albumin Level 4.3 g/dL (3.5-5.1); Alkaline Phosphatase 92 U/L (38-126); Anion Gap 5 mmol/L (8-16); Aspartate Amino Transferase 84 U/L (14-36); Bilirubin,Total 0.6 mg/dL (0.2-1.3); Blood Urea Nitrogen 14 mg/dL (7-17); Calcium 9.5 mg/dL (8.4-10.2); Carbon Dioxide 29 mmol/L (22-30); Chloride 104 mmol/L (98-107); Cholesterol 195 mg/dL (0-200); Estimated Glomerular Filt Rate > 60; Glucose 87 mg/dL (65-110); HDL Direct 73 mg/dL; Sodium 138 mmol/L (137-145); Triglycerides 165 mg/dL (<150)
[2023-05-11 18:52] LABS: LDL Cholesterol Direct 74 mg/dL
== END 2023-05-11 07:06 | disposition home or self-care (01) ==
LOC: ANHBWCLAB 07:08
PROVIDERS: PCP Family Medicine; Referring Provider Nurse Practitioner Adult Health; Visit Provider Internal Medicine Cardiovascular Disease
DX: E78.5 Hyperlipidemia, unspecified (principal)
CPT/HCPCS: 36415; 80053; 80061

== ENCOUNTER 2023-05-22 13:07 | Outpatient (CLI) | payer OTHER, SELFPAY ==
--- NOTE | ~2023-05-22 | DEXA_ITS ---
Bone Density Report Name: DARYA MAC Age: 57 Sex: Female Ethnicity: White Date of : 1965 Indication: postmenopausal; screening for osteoporosis; Referring Provider: MICHELE, DARYA Hillman Study: Bone densitometry was performed. Exam Date: May 22, 2023 Accession number: [id number] Bone Density: Region BMD T-score Z-score Classification AP Spine(L1-L4) 0.964 -0.8 0.6 Normal Femoral Neck (Left) 0.655 -1.8 -0.5 Osteopenia Total Hip (Left) 0.800 -1.2 -0.3 Osteopenia Femoral Neck (Right) 0.672 -1.6 -0.4 Osteopenia Total Hip (Right) 0.828 -0.9 -0.1 Normal Total Hip Mean 0.814 -1.1 -0.2 Osteopenia World Health Organization criteria for BMD impression classify patients as: Normal (T-score at or above -1.0), Osteopenia (T-score between -1.0 and -2.5), or Osteoporosis (T-score at or below -2.5). 10-year Fracture Risk(1): Major Osteoporotic Fracture 8.2% Hip Fracture 0.8% Reported Risk Factors: [place] (), Neck BMD=0.655, BMI=26.6 (1) FRAX(R) Version 3.08. Fracture probability calculated for an untreated patient. Fracture probability may be lower if the patient has received treatment. Clinical Information Provided by Patient: Patient maximum height was 61.5 Menopause Age: 50 Does not regularly consume dairy products Drinks caffeinated beverages Onset of menses at age 11 Number of children 2 Impression: The patient has low bone mass, based on the Left Femoral Neck T-score. The patient has an estimated ten-year risk of hip fracture of 0.8% and an estimated ten-year risk of major fracture of 8.2%, based on the WHO FRAX algorithm. Discussion: BONE DENSITY IS LOW AT ONE OR MORE SKELETAL SITES. This patient's lowest T-score is low at one or more skeletal sites. It meets the World Health Organization's (WHO) criteria for ?low bone mass? (T-score between -1.0 and -2.5). The patient's 10-year risk of fracture as calculated by FRAX is less than the threshold where pharmacological therapy is recommended by the National Osteoporosis Foundation (NOF). However, all treatment decisions require clinical judgment and consideration of individual patient factors, including patient preferences, comorbidities, previous drug use, risk factors not captured in the FRAX model (e.g., frailty, falls, vitamin D deficiency, increased bone turnover, interval significant decline in bone density) and possible under or overestimation of fracture risk by FRAX. The patient should follow a healthful lifestyle (good nutrition with adequate calcium and vitamin D, and appropriate weight-bearing exercise). Follow-Up: Consider repeating this study in 2 to 3 years to reassess this patient's status, or sooner if there is some new clinical indication. Reported by: REUBEN on 05/22/2023 1:30:00 PM.
== END 2023-05-22 13:08 | disposition home or self-care (01) ==
LOC: ANHIMG 13:09
PROVIDERS: PCP Family Medicine; Visit Provider Registered Nurse
DX: Z78.0 Asymptomatic menopausal state (principal); M85.852 Other specified disorders of bone density and structure, left thigh; M85.851 Other specified disorders of bone density and structure, right thigh
CPT/HCPCS: 77080

== ENCOUNTER 2024-01-18 09:08 | Outpatient (CLI) | payer OTHER, SELFPAY ==
--- NOTE | ~2024-01-18 | MM_ITS ---
EXAMINATION: MM screening wanda BI w sola HISTORY: Screening TECHNIQUE: Craniocaudal and mediolateral oblique 3-D tomosynthesis images were obtained and synthetic 2-D images were generated. CAD analysis was submitted and interpreted. COMPARISON: Comparison to multiple prior studies sequentially, with oldest reviewed study dated 09/19. BREAST PARENCHYMAL COMPOSITION: Not dense: There are scattered areas of fibroglandular density. FINDINGS: There is no evidence of suspicious mass, calcification, or architectural distortion to sugg est malignancy in either breast. There has been no suspicious interval change. IMPRESSION: 1. No mammographic evidence of malignancy. 2. Recommend routine screening mammography in one year. BI-RADS Category 1: Negative Reviewed, dictated and finalized at location B. INE CUSTOMER SERVICE AGENT
== END 2024-01-18 09:09 | disposition home or self-care (01) ==
LOC: ANHIMG 09:09
PROVIDERS: PCP Nurse Practitioner Adult Health; Visit Provider Family Medicine
DX: Z12.31 Encounter for screening mammogram for malignant neoplasm of breast (principal)
CPT/HCPCS: 77063; 77067

== ENCOUNTER 2024-02-01 07:50 | Outpatient (CLI) | payer OTHER, SELFPAY ==
[2024-02-01 08:25] LABS: Hematocrit 42.4 % (37.0-47.0); Hemoglobin 13.7 g/dL (12.0-15.0); Mean Corpuscular HGB Conc 32.3 g/dl (32-36); Mean Corpuscular Hemoglobin 28.8 pg (26-34); Mean Corpuscular Volume 89.3 fl (80-100); Platelet Count Result 297 k/mm3 (150-375); Red Blood Count 4.75 M/mm3 (4.2-5.4); Red Cell Distribution Width 11.9 % (11.5-14.5); White Blood Count 5.7 K/mm3 (4.5-10.0)
[2024-02-01 09:01] LABS: Alanine Aminotransferase 16 U/L (6-35); Albumin Level 4.8 g/dL (3.5-5.1); Alkaline Phosphatase 63 U/L (38-126); Anion Gap 7 mmol/L (4-12); Aspartate Amino Transferase 29 U/L (14-36); Bilirubin,Total 0.7 mg/dL (0.2-1.3); Blood Urea Nitrogen 21 mg/dL (7-17); Calcium 9.6 mg/dL (8.4-10.2); Carbon Dioxide 29 mmol/L (22-30); Chloride 101 mmol/L (98-107); Cholesterol 286 mg/dL (0-200); Estimated Glomerular Filt Rate > 60; Glucose 94 mg/dL (65-110); HDL Direct 96 mg/dL; Potassium 4.1 mmol/L (3.4-5.0); Sodium 137 mmol/L (137-145); Triglycerides 100 mg/dL (<150)
[2024-02-01 09:11] LABS: LDL Cholesterol Direct 132 mg/dL
[2024-02-01 11:09] LABS: Free T4 Free Thyroxine 0.96 ng/mL (0.78-2.19); Vitamin D 25 Hydroxy 51.3 ng/mL
[2024-02-05 20:33] LABS: Thyroid Peroxidase Antibodies 1 IU/mL (<9)
== END 2024-02-01 07:51 | disposition home or self-care (01) ==
LOC: ANHLAB 07:52
PROVIDERS: PCP Nurse Practitioner Adult Health; Visit Provider Nurse Practitioner Adult Health
DX: E07.9 Disorder of thyroid, unspecified (principal); R79.89 Other specified abnormal findings of blood chemistry; Z13.9 Encounter for screening, unspecified
CPT/HCPCS: 36415; 80053; 80061; 82306; 82607; 84439; 84443; 85027; 86376

== ENCOUNTER 2024-08-12 14:37 | Outpatient (CLI) | payer OTHER, SELFPAY ==
--- NOTE | ~2024-08-12 | XR_ITS ---
XR knee LT 3V 08/12/2024 15:01 Indication: Left knee pain Procedure: 3 views left knee Comparison: No prior studies for comparison. Findings: There is anatomic alignment. No fracture or subluxation. No joint effusion. No foreign bodi es. Impression: 1: No significant bone or joint abnormality. Reviewed, dictated and finalized at location A. Impression: 1: No significant bone or joint abnormality.
== END 2024-08-12 14:38 | disposition home or self-care (01) ==
PROVIDERS: PCP Nurse Practitioner Adult Health; Visit Provider Nurse Practitioner Adult Health
DX: M25.562 Pain in left knee (principal)
CPT/HCPCS: 73562

== ENCOUNTER 2024-08-26 10:44 | Outpatient (CLI) | payer OTHER, SELFPAY ==
--- NOTE | ~2024-08-26 | MR_ITS ---
EXAMINATION: MR knee LT wo con DATE: 08/26/2024 11:16 INDICATION: Left knee pain TECHNIQUE: Magnetic resonance imaging (MRI) of the left knee was performed without intravenous contra st. Sequences included coronal PD-weighted FSE, coronal PD-weighted FS FSE, sagittal T2-weighted FSE , sagittal PD-weighted FS FSE and axial PD weighted fat saturated FSE. COMPARISON: None. FINDINGS: Medial compartment: There is medial extrusion of the medial meniscal body. Amorphous increased signal and irregular perip heral margins involving the posterior half of the medial meniscus near the posterior root likely repr esenting a complex tear with more well-defined linear tear plane extending to the inferior articular surface in the more medial posterior horn. There is mild chondral surface regularity along the anteri or weightbearing medial femoral condyle. Lateral compartment: Lateral meniscus is normal. Articular cartilage is normal. Patellofemoral compartment: Partial-thickness chondral ulceration and deep fissuring and mild underlying subarticular edema-like signal change at the medial patellar facet. Additional deep chondral fissuring with mild underlying s ubarticular edema-like signal change at the inferior aspect of the medial trochlea. Ligaments and tendons: Anterior and posterior cruciate ligaments are normal. The medial collateral ligament and fibular andrés ateral ligament complex are normal. Tolerated tendon is normal. Mild distal quadriceps tendinopathy. The visualized medial and lateral hamstring tendons as well as the iliotibial band are normal. Fluid: Small joint effusion at the suprapatellar pouch. No loose osteochondral bodies identified. Moderate s ized Ulrich's cyst. Osseous/other: Bone alignment is normal. No fracture or pathologic marrow replacing process. IMPRESSION: 1. Complex tear at the posterior horn and root of the medial meniscus. 2. Mild osteoarthritis with moderate grade chondromalacia in the medial compartment and high-grade ch ondral malacia in the patellofemoral compartment. 3. Mild distal quadriceps tendinopathy without tear. 4. Small left knee joint effusion and moderate-sized Ulrich's cyst. Reviewed, dictated and finalized at location A. IMPRESSION: 1. Complex tear at the posterior horn and root of the medial meniscus. 2. Mild osteoarthritis with moderate grade chondromalacia in the medial compart ment and high-grade chondral malacia in the patellofemoral compartment. 3. Mild distal quadriceps tendinopathy without tear. 4. Small left knee joint effusion and moderate-sized Ulrich's cyst.
== END 2024-08-26 10:45 | disposition home or self-care (01) ==
LOC: GOSHIMG 10:44
PROVIDERS: PCP Nurse Practitioner Adult Health; Visit Provider Nurse Practitioner Adult Health
DX: S83.232A Complex tear of medial meniscus, current injury, left knee, initial encounter (principal); M17.12 Unilateral primary osteoarthritis, left knee; M94.262 Chondromalacia, left knee; M25.462 Effusion, left knee; M71.22 Synovial cyst of popliteal space [Baker], left knee; X58.XXXA Exposure to other specified factors, initial encounter
CPT/HCPCS: 73721

== ENCOUNTER 2024-08-29 09:49 | Outpatient (CLI) | payer OTHER, SELFPAY ==
--- OUTSIDE RECORDS SUMMARY | 2024-08-29 10:22 | XMS_ITS | Referral Summary ---
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 (06/17/2016): MYALGIA AND MYOSITIS NOS Social History Tobacco Use Types Packs/Day Years Used Date Smoking Tobacco: Never Assessed Alcohol Use Standard Drinks/Week Comments Yes 0 (1 standard drink = 0.6 oz pur e alcohol) Comments Unknown Sex and Gender Information Value Date Recorded Sex Assigned at Not on file Legal Sex Female 1:47 PM SOLICITING FREIGHT AGENT Gender Identity Not on file Sexual Orientation Not on file Last Filed Vital Signs Vital Sign Reading Time Taken Comments Blood Pressure 107/76 02/09/2023 2:25 PM SOLICITING FREIGHT AGENT Pulse 58 02/09/2023 2:25 PM SOLICITING FREIGHT AGENT Temperature - - Respiratory Rate - - Oxygen Saturation 98% 11/26/2012 1:46 PM CDT Inhaled Oxygen Concentration - - Weight 59 kg (130 lb) 11/26/2012 1:46 PM CDT Height 156.2 cm (5' 1.5) 11/26/2012 1:46 PM CDT Body Mass Index 24.17 11/26/2012 1:46 PM CDT Plan of Treatment Not on file Insurance [facility] [employer] [facility] H[facility]/PPO Address: [id number] [place] [address] [facility] H[facility]/PPO Address: [phone] [place] [address] Care Teams Information Technology Data Analyst Relationship Specialty Start Date End Date Trae Miller MD PCP - General Family Practice 02/01/23
--- OUTSIDE RECORDS SUMMARY | 2024-08-29 10:22 | XMS_ITS | Clinical Summary ---
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): MYALGIA AND MYOSITIS NOS Surgical History Surgery Date Site/Laterality Comments OTHER SURGICAL HISTORY menorrhagia: endometrial ablation Medical History Medical History Date Comments Hx Other Medical 2010 menorrhagia Family History Medical History Relation Name Comments Other Brother 2 healthy; COPD Father 2 COPD; Coronary artery disease Father 2 Gaetano nary artery disease; Other Mother 2 Chronic lymphoc ytic leukemia; Relation Name Status Comments Brother 1 Alive Brother 2 Father 1 Alive Father 2 Mother 1 Alive Mother 2 Social History Tobacco Use Types Packs/Day Years Used Date Smoking Tobacco: Never Assessed Alcohol Use Standard Drinks/Week Comments Yes 0 (1 standard drink = 0.6 oz pur e alcohol) Comments Unknown Sex and Gender Information Value Date Recorded Sex Assigned at Not on file Legal Sex Female 1:47 PM BAGGAGE PORTER Gender Identity Not on file Sexual Orientation Not on file Obstetrics History Last Filed Vital Signs Vital Sign Reading Time Taken Comments Blood Pressure 107/76 02/09/2023 2:25 PM BAGGAGE PORTER Pulse 58 02/09/2023 2:25 PM BAGGAGE PORTER Temperature - - Respiratory Rate - - Oxygen Saturation 98% 11/26/2012 1:46 PM CDT Inhaled Oxygen Concentration - - Weight 59 kg (130 lb) 11/26/2012 1:46 PM CDT Height 156.2 cm (5' 1.5) 11/26/2012 1:46 PM CDT Body Mass Index 24.17 11/26/2012 1:46 PM CDT Plan of Treatment Health Maintenance Due Date Last Done Comments Breast Cancer Screening-Mammogram 1965 Cervical Cancer Screening 1965 Colon Cancer Screening-Colonoscopy 1965 Depression Screening 1965 Hepatitis C Screening 1965 Hepatitis B Screening 1982 Regular Well Visit/Exam 18-64 1982 Zoster Vaccine (2 of 3) 05/24/2022 03/29/19 23, 10/06/2021 Covid-19 Vaccine (2023-2 5 season) 2023 04/02/2021, 05/23/2020, 04/25/2020 Influenza Vaccine (Season Ended) 2024 DTaP/Tdap/Td Vaccine (2 - Td or Tdap) 10/07/2031 10/06/2021 Pneumococcal vaccine <65 Aged Out No longer eligible based on patient's age to complete this topic Insurance [facility] [employer] [facility] [employer] Care Teams Wine Consultant Relationship Specialty Start Date End Date Trae Miller MD PCP - General Family Practice 02/01/23
[2024-08-29 19:54] LABS: Basophils Percent Auto 0.3 % (0.2-1.2); Eosinophils Absolute Auto 0.1 K/mm3 (0-0.3); Eosinophils Percent Auto 1.1 % (0-4.4); Hematocrit 42.9 % (37.0-47.0); Hemoglobin 13.4 g/dL (12.0-15.0); Immature Granulocyte Absolute 0.01 K/mm3 (0.00-0.031); Immature Granulocyte Percent A 0.1 % (0-0.5); Lymphocytes Absolute Auto 2.33 K/mm3 (0.9-3.2); Mean Corpuscular HGB Conc 31.2 g/dl (32-36); Mean Corpuscular Hemoglobin 28.3 pg (26-34); Mean Corpuscular Volume 90.5 fl (80-100); Mean Platelet Volume 9.9 fl (7.4-10.4); Monocytes Absolute Auto 0.7 K/mm3 (0.1-0.6); Monocytes Percent Auto 9.9 % (2.6-8.5); Neutrophils Absolute Auto 3.9 K/mm3 (1.3-6.7); Neutrophils Percent Auto 55.6 % (45.5-73.1); Platelet Count Result 299 k/mm3 (150-375); Red Blood Count 4.74 M/mm3 (4.2-5.4); Red Cell Distribution Width 12.1 % (11.5-14.5); White Blood Count 7.1 K/mm3 (4.5-10.0)
[2024-08-29 20:02] LABS: Alanine Aminotransferase 15 U/L (6-35); Albumin Level 4.6 g/dL (3.5-5.1); Alkaline Phosphatase 60 U/L (38-126); Anion Gap 6 mmol/L (4-12); Aspartate Amino Transferase 36 U/L (14-36); Bilirubin,Total 0.7 mg/dL (0.2-1.3); Blood Urea Nitrogen 19 mg/dL (7-17); Calcium 9.6 mg/dL (8.4-10.2); Carbon Dioxide 27 mmol/L (22-30); Chloride 100 mmol/L (98-107); Cholesterol 314 mg/dL (0-200); Estimated Glomerular Filt Rate > 60; Glucose 88 mg/dL (65-110); Potassium 4.5 mmol/L (3.4-5.0); Sodium 133 mmol/L (137-145); Total Protein 7.6 g/dL (6.3-8.2); Triglycerides 84 mg/dL (<150)
[2024-08-29 20:16] LABS: LDL Cholesterol Direct 142 mg/dL
[2024-08-29 20:29] LABS: HDL Direct 112 mg/dL
[2024-08-29 20:46] LABS: Vitamin D 25 Hydroxy 43.4 ng/mL
== END 2024-08-29 09:50 | disposition home or self-care (01) ==
LOC: ANHGOSHLAB 09:50
PROVIDERS: PCP Nurse Practitioner Adult Health; Visit Provider Nurse Practitioner Adult Health
DX: E78.5 Hyperlipidemia, unspecified (principal); R79.89 Other specified abnormal findings of blood chemistry
CPT/HCPCS: 36415; 80053; 80061; 82306; 84443; 85025

== ENCOUNTER 2024-08-29 12:52 | Outpatient (CLI) | payer OTHER, SELFPAY ==
--- NOTE | ~2024-08-29 | US_ITS ---
EXAM: Focused ultrasound examination of the soft tissues of the right groin HISTORY: R10.31 - Right lower quadrant pain TECHNIQUE: Sonographic evaluation of the soft tissues of the right groin were performed assessing gra yscale appearance and color Doppler flow. COMPARISON: None. FINDINGS: Sonographic evaluation of the soft tissues of the right groin demonstrates benign fibrofatty and fibr omuscular elements without a cystic or solid lesion of concern. IMPRESSION: No sonographic abnormality is appreciated within the area of clinical concern. Reviewed, dictated and finalized at location A.
== END 2024-08-29 12:53 | disposition home or self-care (01) ==
LOC: GOSHIMG 12:53
PROVIDERS: PCP Nurse Practitioner Adult Health; Visit Provider Nurse Practitioner Adult Health
DX: R10.31 Right lower quadrant pain (principal)
CPT/HCPCS: 76882

== ENCOUNTER 2024-09-03 11:13 | Outpatient (CLI) | payer OTHER, SELFPAY ==
--- NOTE | ~2024-09-03 | XR_ITS ---
HISTORY: M25.559 - Pain in unspecified hip COMPARISON: None TECHNIQUE: 2 views of the right hip FINDINGS: No acute fracture or dislocation is identified. Superior lateral sclerosis of the right femoral acetabular joint space is present consistent with ost eoarthritis. Joint space narrowing detected within the right SI joint with sclerosis. Bone mineralization is age-appropriate. IMPRESSION: Degenerative disease without acute fracture or dislocation Reviewed, dictated and finalized at location A.
== END 2024-09-03 11:14 | disposition home or self-care (01) ==
LOC: ANHBWCIMG 11:15
PROVIDERS: PCP Nurse Practitioner Adult Health; Visit Provider Nurse Practitioner Adult Health
DX: M16.11 Unilateral primary osteoarthritis, right hip (principal)
CPT/HCPCS: 73502

== ENCOUNTER 2024-09-17 10:55 | Outpatient (CLI) | payer OTHER, SELFPAY ==
--- NOTE | ~2024-09-17 | MR_ITS ---
MRI of the right hip Clinical history: Osteoarthritis Technique: Coronal T1-weighted, T2-weighted, and proton-density fat-sat images, and axial T1-weighted and proton-density fat-sat images were acquired through the pelvis. Coronal T2-weighted images and c oronal, axial, and sagittal proton-density fat-sat images were acquired through the right hip. Findings: There is no fracture or avascular necrosis of either hip. Bone marrow signals the proximal femora and pelvic bones are unremarkable. There is mild chondromalacia of both hip joints of relative preservation of the hip joint spaces. No joint effusion. There is degenerative attenuation extensive ly involving the right acetabular labrum. Left acetabular labrum appears intact. Visualized musculature about the pelvis and right hip is unremarkable. No muscle/edema. Visualized te ndons are intact. No soft tissue mass or fluid collection seen. IMPRESSION: Mild degenerative change of both hip joints. Extensive degenerative attenuation of the right acetabul ar labrum. Reviewed, dictated and finalized at location . IMPRESSION: Mild degenerative change of both hip joints. Extensive degenerative attenuation of the right acetabular labrum.
== END 2024-09-17 10:56 | disposition home or self-care (01) ==
LOC: GOSHIMG 10:56
PROVIDERS: PCP Orthopaedic Surgery; Visit Provider Nurse Practitioner Adult Health
DX: M16.0 Bilateral primary osteoarthritis of hip (principal)
CPT/HCPCS: 73721

== ENCOUNTER 2024-10-29 10:00 | Outpatient (RCR) | payer OTHER, SELFPAY ==
--- NOTE | 2024-09-17 12:08 | OPREHPOC ---
Outpatient Therapy Plan of Care This is a Multidisciplinary Plan of Care that may contain components documented by all disciplines (PT, OT, and ST.) PT Problem 1 PT Problem #1 Knowledge Deficit PT Goal 1 Goal / Goal Update 1. Patient to demonstrate independence with HEP for improved self-reliance of symptom management. Target Visit 4 PT Problem 2 PT Problem #2 Pain PT Goal 1 Goal / Goal Update 1. Patient to decrease subjective reports of pain to <2/10 for improved ADL tolerance. Target Visit 8 PT Problem 3 PT Problem #3 Impaired Range of Motion PT Goal 1 Goal / Goal Update 1. Patient to demonstrate an increase of R hip external rotation/internal rotation active range of motion to be within 5 degrees of L side. Target Visit 8 PT Problem 4 PT Problem #4 Impaired Strength PT Goal 1 Goal / Goal Update 1. Patient will demonstrate improved strength of the bilateral hip abductors and extensors to 4+/5 on manual muscle testing in order to improve gait stability and stair negotiation. Target Visit 8
--- NOTE | 2024-09-17 12:09 | PTOPEVAL1 ---
Assessment and note entered by Catarino Wakefield PT Evaluation Information Assessment Status Evaluation Diagnosis L knee pain and R hip pain ICD-10 Condition Codes (PT) Pain in right hip M25.551,Pain in left knee M25. 562 Other ICD-10 Condition Codes ( S83.232A M22.42 M17.12 M16.11 PT) Subjective Information Pt reports a history of chronic history L knee pain and more recently R hip and groin pain. Pt reports prior treatments such as steroid injection in L knee and takes Tylenol and ibuprofen. Pt states she is getting an MRI of her R hip later today. Pt would like to get back to exercising, walking and playing with grandchild with less pain . Reported Pain Level Pain Score 2,5: Self Report Assessment PT Clinical Summary Patient presents to physical therapy with a primary issue of R hip and L knee pain that has progressed to radiating pain in groin. Patient is receiving Hip MRI to rule out any labral pathologies. Patient demonstrates hip weakness, pain, decreased mobility, gait deficit, and decreased flexibility that limit their ability to perform activities of daily living and functional movements. Patient will benefit from skilled physical therapy to address the above listed deficits and return to prior level of function. Home exercise program instructed and written handout provided, exercises tolerated well with no adverse effects to note post-session. Patient was educated on importance of adherence to home exercise program. Patient was also educated on anatomy, prognosis, home modalities, and plan of care. Plan of Care Interventions Electrical Stimulation,Gait Training,Hot Pack/Cold Pack,Manual Therapy,Neuro Re-education, Therapeutic Activities,Therapeutic Exercise,Other PT Services Indicated Yes Treatment Frequency and 1-2x week 8 visits Duration These treatments will address the objective and functional deficits as defined above. The patient will be advanced safely and appropriately in order for the patient to progress towards his/her prior level of function. Additional exercises will be introduced and as well as a comprehensive home exercise program upon discharge, if needed, ?to ensure carryover of functional gains achieved in the clinic. This treatment plan has been reviewed and agreement upon by the patient.
--- NOTE | 2024-10-08 08:42 | PCPTNOTE ---
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
--- NOTE | 2024-11-26 09:41 | PCPTNOTE ---
Pt was called after 15 minutes into her re-evaluation appointment slot. Pt stated she forget about her appointment and would like to call back to reschedule.
--- NOTE | 2025-01-06 08:21 | PTOPDC ---
Assessment and note entered by Catarino Wakefield, PT Evaluation Information Assessment Status Evaluation Diagnosis L knee pain and R hip pain ICD-10 Condition Codes (PT) Pain in right hip M25.551,Pain in left knee M25. 562 Other ICD-10 Condition Codes ( S83.232A M22.42 M17.12 M16.11 PT) Subjective Information Pt requested discharge from therapy. Assessment PT Clinical Summary Patient requested discharge from therapy at this time All, treatments were completed the final re-assessment was not. Plan of Care PT Services Indicated No
== END 2024-12-16 23:59 | disposition home or self-care (01) ==
LOC: ANHGOSHPT 10:00
PROVIDERS: PCP Nurse Practitioner Adult Health; Visit Provider Physician Assistant Surgical
DX: S83.232A Complex tear of medial meniscus, current injury, left knee, initial encounter (principal); M22.42 Chondromalacia patellae, left knee; M17.12 Unilateral primary osteoarthritis, left knee; M16.11 Unilateral primary osteoarthritis, right hip
CPT/HCPCS: 97110; 97140; 97161; 97530